=== PATIENT | female | born 1960 | race Caucasian/White ===

== ENCOUNTER 2016-10-17 16:59 | Emergency (ER) | payer BC ==
[~2016-10-17] VITALS: Ht 160 cm; Wt 79.6 kg
[2016-10-17] MEDS ORDERED: FLEXERIL10 MG PO (18:57)
[2016-10-17] MEDS ORDERED: VALIUM5 MG PO (19:08)
[2016-10-17 19:29] VITALS: BP 147/81
== END 2016-10-17 19:31 | disposition home or self-care (01) ==
LOC: EME 16:59
DX: R51 Headache (principal); M54.12 Radiculopathy, cervical region
CPT/HCPCS: 70450; 99281; 99284